=== PATIENT | male | born 2000 ===

== ENCOUNTER 2021-03-10 20:10 | Emergency (ER) | payer SELFPAY ==
[~2021-03-10] VITALS: Ht 182.9 cm; Wt 65.9 kg
[2021-03-10] MEDS ORDERED: CEPHALEXIN500 M1 PO (20:55)
[2021-03-10 21:30] VITALS: BP 128/70; PULSE 80; TEMP 99
== END 2021-03-10 21:30 | disposition home or self-care (01) ==
LOC: COL.ER 20:10
DX: S80.811A Abrasion, right lower leg, initial encounter (principal); V00.838A Other accident with motorized mobility scooter, initial encounter